=== PATIENT | female | born 1995 | race Caucasian/White ===

== ENCOUNTER 2017-11-28 20:28 | Emergency (ER) | payer SELFPAY ==
[2017-11-28 20:52] VITALS: RESP 16; TEMP 98.2; O2SAT 100
[2017-11-28 23:51] LABS: SQUAMOUS EPITHIAL < 1 /hpf (0-5); URINE BILIRUBIN NEGATIVE (NEGATIVE); URINE BLOOD NEGATIVE (NEGATIVE); URINE CLARITY SLIGHTY-CLOUDY (Clear); URINE COLOR YELLOW (YELLOW); URINE GLUCOSE (UA) NEG (Normal); URINE LEUKOCYTE ESTERASE NEG Leu/uL (Negative); URINE NITRATE NEGATIVE (NEGATIVE); URINE PROTEIN NEGATIVE (NEGATIVE); URINE UROBILINOGEN 0.2-1.0 mg/dL (0.2-1.0)
[2017-11-29 00:06] LABS: BASO % 0.3 % (0.0-2.0); EOS # 0.1 K/uL (0.0-0.7); EOS % 1.4 % (0.0-4.0); HEMOGLOBIN 11.7 g/dL (12.0-16.0); LYMPH # 2.8 K/uL (1.0-4.3); LYMPH % 29.8 % (20.0-40.0); MEAN CELL VOLUME 81.1 fl (81.0-99.0); MEAN CORPUSCULAR HEMOGLOBIN 26.7 pg (27.0-31.0); MEAN CORPUSCULAR HGB CONC 32.9 g/dL (33.0-37.0); MEAN PLATELET VOLUME 9.6 fl (7.2-11.7); MONO # 0.8 K/uL (0.0-0.8); MONO % 8.6 % (0.0-10.0); NEUT # 5.7 K/uL (1.8-7.0); NEUT % 59.9 % (50.0-75.0); NRBC % 0.1 % (0.0-0.0); RBC 4.39 Mil/uL (3.80-5.20); RED CELL DISTRIBUTION WIDTH 13.8 % (11.5-14.5); WHITE BLOOD COUNT 9.5 K/uL (4.8-10.8)
--- NOTE | 2017-11-29 00:32 | ED PDOC ---
HPI: Female Pain Time Seen by Provider: 11/28/17 22:51 Chief Complaint (Nursing): Female Genitourinary Chief Complaint (Provider): Female Genitourinary History Per: Patient History/Exam Limitations: no limitations Onset/Duration Of Symptoms: Hrs (x8 hours [employer]) Severity: Mild Quality Of Discomfort: "Pain" Associated Symptoms: denies: Fever Additional Complaint(s): 22 year old female presents to ED with complaints of vaginal spotting x8 hours ago, has no past medical history, and is at 18 weeks. Notes that when she went to the bathroom this morning she saw very faint blood upon wiping. (+) mild abdominal pain, (-) fever, cough, SOB, or chest pain. Reports that abdominal pain has resolved upon ED arrival. PCP: JEANNE Abnormal Vaginal Bleeding: Yes : 1 Para: 0 Past Medical History Reviewed: Historical Data, Nursing Documentation, Vital Signs Vital Signs: Last Vital Signs Temp 98.2 F 11/28/17 20:48 Pulse 85 11/28/17 20:48 Resp 16 11/28/17 20:48 BP 122/72 11/28/17 20:48 Pulse Ox 100 11/28/17 20:48 - Medical History PMH: No Chronic Diseases - Surgical History Surgical History: No Surg Hx - Family History Family History: States: Unknown Family Hx - Social History Current smoker - smoking cessation education provided: No Ex-Smoker (has not smoked in the last 12 months): No Alcohol: None Drugs: Denies - Allergies Allergies/Adverse Reactions: Allergies Allergy/AdvReac Type Severity Reaction Status Date / Time No Known Allergies Allergy Verified 11/28/17 20:45 Review of Systems ROS Statement: Except As Marked, All Systems Reviewed And Found Negative Constitutional: Negative for: Fever Cardiovascular: Negative for: Chest Pain Respiratory: Negative for: Cough, Shortness of Breath Gastrointestinal: Positive for: Abdominal Pain (resolved) Genitourinary Female: Positive for: Vaginal Bleeding (very faint vaginal spotting) Physical Exam - Reviewed Nursing Documentation Reviewed: Yes Vital Signs Reviewed: Yes - Physical Exam Appears: Positive for: Non-toxic, No Acute Distress Skin: Positive for: Normal Color, Warm, Dry Eye Exam: Positive for: Normal appearance ENT: Positive for: Normal ENT Inspection Cardiovascular/Chest: Positive for: Regular Rate, Rhythm. Negative for: Murmur Respiratory: Positive for: Normal Breath Sounds. Negative for: Respiratory Distress Gastrointestinal/Abdominal: Positive for: Normal Exam, Soft. Negative for: Tenderness Extremity: Positive for: Normal ROM. Negative for: Deformity Neurologic/Psych: Positive for: Alert, Oriented. Negative for: Motor/Sensory Deficits - Laboratory Results Result Diagrams: 11/29/17 00:01 - ECG O2 Sat by Pulse Oximetry: 100 (RA) Pulse Ox Interpretation: Normal Medical Decision Making Medical Decision Makin Initial impression: spotting in second trimester Initial plan: * BETA HCG QUANT * UDip * Labs * UA * US OB PREG, LIMITED 0034 US FINDINGS: Fetus: Single live intrauterine gestation. Heart rate: heart rate of 149 beats per minute. Presentation: Cephalic. Placenta: Fundal placenta. No placenta previa or abruption. Amniotic fluid: Normal. Anatomy: No gross anomaly is appreciated. BIOMETRICS Gestational age by US: Estimated gestational age of 18 weeks 0 days by measurements. EFW: Estimated weight of 213 g. BPD: 4.2 cm, correlating with 18 weeks 5 days. HC: 14.5 cm, correlating with 17 weeks 5 days. AC: 12.1 cm, correlating with 17 weeks 5 days. FL: 2.6 cm, correlating with 18 weeks 0 days. MATERNAL: Uterus: Unremarkable. No myometrial mass. Cervix: No cervical dilatation or effacement. Adnexa: Ovaries not visualized. No adnexal masses. Free fluid: No significant free fluid. IMPRESSION: 1. Single live intrauterine gestation. 0130 Labs reviewed: no clinically significant abnormalities. Patient advised to follow up with PMD. Patient is stable for discharge home. Dx: threatened AB Condition stable. Scribe Attestation: Documented by Jaci Putnam acting as a scribe for Iker Hernandez MD. Scribe Attestation: All medical record entries made by the Scribe were at my direction and personally dictated by me. I have reviewed the chart and agree that the record accurately reflects my personal performance of the history, physical exam, medical decision making, and the department course for this patient. I have also personally directed, reviewed, and agree with the discharge instructions and disposition. Disposition - Clinical Impression Clinical Impression: Vaginal bleeding in - Patient ED Disposition Is Patient to be Admitted: No - Disposition Disposition: Routine/Home Disposition Time: 01:39 Condition: STABLE Instructions: Threatened Miscarriage (ED) Forms: [facility] ([place])
--- NOTE | 2017-11-29 00:34 | US ---
EXAM: US After First Trimester, Transabdominal CLINICAL HISTORY: 22 years old, female; Signs and symptoms; Lmp or gestational age (in weeks): 07/23/17; Antepartum complications; Other: Spotting; ; Additional info: Preg vag bld TECHNIQUE: Real-time transabdominal obstetrical ultrasound of the maternal pelvis and a second or third trimester with image documentation. COMPARISON: No relevant prior studies available. FINDINGS: Fetus: Single live intrauterine gestation. Heart rate: heart rate of 149 beats per minute. Presentation: Cephalic. Placenta: Fundal placenta. No placenta previa or abruption. Amniotic fluid: Normal. Anatomy: No gross anomaly is appreciated. BIOMETRICS Gestational age by US: Estimated gestational age of 18 weeks 0 days by measurements. EFW: Estimated weight of 213 g. BPD: 4.2 cm, correlating with 18 weeks 5 days. HC: 14.5 cm, correlating with 17 weeks 5 days. AC: 12.1 cm, correlating with 17 weeks 5 days. FL: 2.6 cm, correlating with 18 weeks 0 days. MATERNAL: Uterus: Unremarkable. No myometrial mass. Cervix: No cervical dilatation or effacement. Adnexa: Ovaries not visualized. No adnexal masses. Free fluid: No significant free fluid. IMPRESSION: 1. Single live intrauterine gestation.
[2017-11-29 01:44] VITALS: BP 101/62; PULSE 79
== END 2017-11-29 01:45 | disposition home or self-care (01) ==
LOC: H.ER 20:28
DX: O20.8 Other hemorrhage in early pregnancy (principal); Z3A.09 9 weeks gestation of pregnancy

== ENCOUNTER 2018-04-28 14:42 | Emergency (ER) | payer MEDICAID ==
[2018-04-28 14:50] VITALS: RESP 18; O2SAT 98
--- NOTE | 2018-04-28 15:27 | ED PDOC ---
HPI: General Adult Time Seen by Provider: 04/28/18 15:02 Chief Complaint (Nursing): Shortness Of Breath Chief Complaint (Provider): Choking Episodes History Per: Patient History/Exam Limitations: no limitations Onset/Duration Of Symptoms: Days (x1) Current Symptoms Are (Timing): Still Present Additional Complaint(s): 22 y/o female with no significant PMHx presenting for evaluation of multiple choking episodes x1 day. Patient states at 5am she woke up and felt like there was something in her throat. She says she coughed a lot, coughed up phlegm, and her episode spontaneously resolved. She reports at 11am she again felt like she was choking, coughed up phlegm, and began to feel better. She states this episode lasted 20 seconds and resolved spontaneously like her previous episode. Patient denies any associated shortness of breath, rhinorrhea, or congestion. She reports a residual cough from a URI she had 3 weeks ago that resolved after a few weeks. She denies any fever or nausea. Patient reports she is 1 week and otherwise has been feeling fine. Patient reports she is currently . PMD: [facility] Past Medical History Reviewed: Historical Data, Nursing Documentation, Vital Signs Vital Signs: Last Vital Signs Temp 98.6 F 04/28/18 17:15 Pulse 88 04/28/18 17:15 Resp 18 04/28/18 17:40 BP 110/70 04/28/18 17:15 Pulse Ox 98 04/28/18 17:15 - Medical History PMH: No Chronic Diseases - Surgical History Surgical History: No Surg Hx - Family History Family History: States: Unknown Family Hx - Social History Current smoker - smoking cessation education provided: No Alcohol: None Drugs: Denies - Home Medications Home Medications: Ambulatory Orders Medication Instructions Recorded Loratadine 10 mg PO DAILY #14 tablet 04/28/18 - Allergies Allergies/Adverse Reactions: Allergies Allergy/AdvReac Type Severity Reaction Status Date / Time No Known Allergies Allergy Verified 11/28/17 20:45 Review of Systems ROS Statement: Except As Marked, All Systems Reviewed And Found Negative Constitutional: Negative for: Fever ENT: Negative for: Nose Discharge, Nose Congestion Respiratory: Positive for: Cough, Sputum. Negative for: Shortness of Breath Gastrointestinal: Negative for: Nausea Physical Exam - Reviewed Nursing Documentation Reviewed: Yes Vital Signs Reviewed: Yes - Physical Exam Appears: Positive for: Well, No Acute Distress Head Exam: Positive for: ATRAUMATIC, NORMOCEPHALIC Skin: Positive for: Warm, Dry Eye Exam: Positive for: EOMI, PERRL ENT: Positive for: Pharynx Is (clear). Negative for: Pharyngeal Erythema, Tonsillar Exudate Neck: Positive for: Painless ROM, Supple Cardiovascular/Chest: Positive for: Regular Rate, Rhythm, Chest Non Tender. Negative for: Murmur Respiratory: Positive for: Normal Breath Sounds (lungs clear to auscultation bilaterally). Negative for: Accessory Muscle Use, Rales, Rhonchi, Wheezing Gastrointestinal/Abdominal: Positive for: Soft. Negative for: Tenderness Back: Positive for: Normal Inspection. Negative for: Decreased ROM Extremity: Positive for: Normal ROM. Negative for: Deformity Lymphatic: Negative for: Adenopathy Neurologic/Psych: Positive for: Alert. Negative for: Motor/Sensory Deficits - ECG O2 Sat by Pulse Oximetry: 98 (RA) Pulse Ox Interpretation: Normal Medical Decision Making Medical Decision Makin:12 Initial Impression: Cough. Differential diagnoses include, but are not limited to post nasal drip, URI, allergic rhinitis, and pneumonina. Plan: -EKG -CXR -Reevaluation Accession No. : [id number] Patient Name / ID : TANA RIOS / [id number] Exam Date : 04/28/2018 15:35:04 ( Approved ) Study Comment : Sex / Age : F / 22Y Creator : Che Murillo MD Dictator : Che Murillo MD [employer] Consultant : Bilingual Nanny : Che Murillo MD Approver2 : Report Date : 04/28/2018 16:17:05 My Comment : HISTORY: COMPARISON: No prior. TECHNIQUE: Chest PA and lateral FINDINGS: LINES AND TUBES: None. LUNG AND PLEURA: The lungs are well inflated and clear. No pleural effusion or pneumothorax. HEART AND MEDIASTINUM: The heart is not enlarged. The hilar and mediastinal contours are within normal limits. SKELETAL STRUCTURES: The bony structures are within normal limits for the patient's age. VISUALIZED UPPER ABDOMEN: Normal. OTHER FINDINGS: None. IMPRESSION: No active pulmonary disease. Scribe Attestation: Documented by Loki Newman, acting as a scribe for Zeina Reynolds MD. Provider Scribe Attestation: All medical record entries made by the Scribe were at my direction and personally dictated by me. I have reviewed the chart and agree that the record accurately reflects my personal performance of the history, physical exam, medical decision making, and the department course for this patient. I have also personally directed, reviewed, and agree with the discharge instructions and disposition. Disposition - Clinical Impression Clinical Impression: URI (upper respiratory infection), Post-nasal drip Counseled Patient/Family Regarding: Studies Performed, Diagnosis, Need For Followup, Rx Given - Disposition Referrals: [facility] [Outside] (FOLLOW UP AT CLINIC IN A WEEK TO SEE HOW YOU ARE DOING) Disposition: Routine/Home Disposition Time: 16:42 Condition: GOOD Prescriptions: Loratadine 10 mg PO DAILY #14 tablet Instructions: Viral Upper Respiratory Infection, Adult (DC)
[2018-04-28 17:44] VITALS: BP 110/70; PULSE 88; TEMP 98.6
--- NOTE | 2018-04-29 12:57 | CARD ---
APPROVED REPORT EKG Measurement Heart [id number] <Conclusion> Sinus bradycardia with sinus arrhythmia Otherwise normal ECG
== END 2018-04-28 17:44 | disposition home or self-care (01) ==
LOC: H.ER 14:42
DX: J06.9 Acute upper respiratory infection, unspecified (principal)